=== PATIENT | male | born 1965 | race Hispanic/Latino ===

== ENCOUNTER 2017-08-12 15:06 | Outpatient (CLI) | payer OTHER | END 2017-08-12 15:07 | disposition home or self-care (01) | LOC: DTY/OP 15:06 | PROVIDERS: ATTEND Family Medicine | DX: E11.9 Type 2 diabetes mellitus without complications (principal) | CPT/HCPCS: 97802 ==

== ENCOUNTER 2020-04-15 22:25 | Emergency (ER) | payer BC ==
[2020-04-15] MEDS ORDERED: Acetaminophen 500 MG TAB ONE (22:56)
[2020-04-15 23:19] LABS: #Lymphocytes 0.8 thou/uL (1.20-3.40); #Monocytes 0.4 thou/uL (0.11-0.59); #Neutrophils 6.1 thou/uL (1.40-6.50); %Basophils 0.6 % (0.0-1.0); %Lymphocytes 11.1 % (21.0-51.0); %Monocytes 5.6 % (0.0-10.0); %Neutrophils 82.6 % (42.0-75.0); Hemoglobin 14.4 g/dL (14.0-18.0); Mean Corpuscular HGB CONC 34.7 g/dL (32.0-36.0); Mean Corpuscular Hemoglobin 30.5 pg (27.0-31.0); Mean Corpuscular Volume 87.9 fL (78.0-98.0); Platelet Count 320 thou/uL (130-400); RBC Distribution Width 13.2 % (11.5-14.5); Red Blood Cell (RBC) Count 4.73 mill/uL (4.70-6.10); White Blood Cell (WBC) Count 7.3 thou/uL (4.8-10.8)
[2020-04-15] MEDS ORDERED: Albuterol 200 PUFF (6.7GM INHALER) ONE (23:22)
[2020-04-15 23:32] LABS: ALT (SGPT) 27 U/L (8-55); AST (SGOT) 37 U/L (5-34); Albumin 3.4 g/dL (3.5-5.0); Alkaline Phosphatase 56 U/L (40-110); Anion Gap 14 mmol/L (10-20); BUN (Urea Nitrogen) 17 mg/dL (8.4-25.7); Bilirubin, Total 0.4 mg/dL (0.2-1.2); Calc. Creatinine Clearance 0 mL/min (70-130); Carbon Dioxide 24 mmol/L (22-29); Chloride 98 mmol/L (98-107); Estimated GFR-MDRD 81; Globulin 4.4 g/dL (2.4-3.5); Glucose 101 mg/dL (70-105); Protein, Total 7.8 g/dL (6.0-8.3); Sodium 132 mmol/L (136-145)
--- NOTE | 2020-04-15 23:38 | RAD ---
Chest AP view INDICATION: History of Covid positive status with cough COMPARISON: None FINDINGS: Lungs: There is bilateral airspace disease within both lungs, most prominent within the right lower lobe Cardiac silhouette: There is mild cardiomegaly Pulmonary vasculature: Normal Pleural spaces: No pleural effusion or pneumothorax is demonstrated. Upper abdomen: No abnormality seen. Osseous structures: No acute osseous abnormality. Additional findings: None. IMPRESSION: 1. Diffuse bilateral airspace disease, most prominent within the right lower lobe, suspicious for mul tifocal pneumonia. 2. Mild cardiomegaly without overt evidence of cardiac decompensation.
== END 2020-04-16 00:10 | disposition home or self-care (01) ==
LOC: ERS 22:25
DX: U07.1 COVID-19 (principal); E11.9 Type 2 diabetes mellitus without complications; I10 Essential (primary) hypertension; Z79.899 Other long term (current) drug therapy; Z79.82 Long term (current) use of aspirin; Z79.4 Long term (current) use of insulin
CPT/HCPCS: 36415; 71045; 80053; 83605; 85025; 87040; 93005